=== PATIENT | male | born 1985 | race Caucasian/White ===

== ENCOUNTER 2022-06-11 10:31 | Outpatient (CLI) | payer MEDICAID, SELFPAY ==
--- NOTE | 2022-06-11 10:41 | XRR_ITS ---
PROCEDURE INFORMATION: Exam: XR Chest Exam date and time: 06/11/2022 10:49 AM Age: 36 years old Clinical indication: Cough; Additional info: Cough for 3 weeks TECHNIQUE: Imaging protocol: Radiologic exam of the chest. Views: 2 views. COMPARISON: No relevant prior studies available. FINDINGS: Lungs: Unremarkable. No consolidation. Pleural spaces: Unremarkable. No pleural effusion. No pneumothorax. Heart/Mediastinum: Unremarkable. No cardiomegaly. Bones/joints: Unremarkable. XR/XR chest 2V* [id number] IMPRESSION: No acute findings.
== END 2022-06-11 10:32 | disposition home or self-care (01) ==
PROVIDERS: PCP Family Medicine; Visit Provider Family Medicine
DX: J20.9 Acute bronchitis, unspecified (principal)
CPT/HCPCS: 71046

== ENCOUNTER → 2024-07-21 12:05 | Outpatient (BNVA) | payer MEDICARE, MEDICAID, SELFPAY | PROVIDERS: PCP Family Medicine; Visit Provider Clinical Nurse Specialist Adult Health | DX: M70.51 Other bursitis of knee, right knee (principal) | CPT/HCPCS: 73562 ==